=== PATIENT | male | born 1965 | race Caucasian/White ===

== ENCOUNTER 2018-12-05 09:15 | Emergency (ER) | payer BC, MEDICAID ==
[2018-12-05] MEDS ORDERED: Sodium Chloride 0.9% 10 ML Syringe FLUSH PRN (09:17)
[2018-12-05] MEDS ORDERED: Pantoprazole 40 MG Vial IVPUSH ONE (09:17)
[2018-12-05] MEDS ORDERED: Sodium Chloride 0.9% 1,000 ML IV SCH (09:30)
--- NOTE | 2018-12-05 09:39 | EDM.PDOC ---
ED HPI GENERAL MEDICAL PROBLEM - General Chief Complaint: Gastrointestinal Problem Stated Complaint: INTERNAL BLEEDING Time Seen by Provider: 12/05/18 09:17 Source of Information: Reports: Patient, EMS, RN Notes Reviewed History Limitations: Reports: Physical Impairment - History of Present Illness INITIAL COMMENTS - FREE TEXT/NARRATIVE: 53-year-old gentleman presents emergency department today via EMS services for 24 hours of bright red blood per rectum as well as emesis of bright red blood, does have a known history of alcohol abuse he is minimally communicative but does open his eyes spontaneously and will follow commands, became very diaphoretic and hypotensive while in the ambulance in route. - Related Data Allergies Allergy/AdvReac Type Severity Reaction Status Date / Time No Known Allergies Allergy Verified 07/28/13 20:07 Home Meds: Home Meds NK [No Known Home Meds] 07/28/13 [History] Past Medical History Psychiatric History: Reports: Addiction Social & Family History - Alcohol Use Alcohol Use History: Yes Days Per Week of Alcohol Use Comment: Daily alcohol use vodka ED ROS GENERAL - Review of Systems Review Of Systems: Unable To Obtain ED EXAM, GI/ABD - Physical Exam Exam: See Below Exam Limited By: Physical Impairment General Appearance: Alert, Other (GCS 14) Eyes: Right: EOMI (Injected sclera) Ears: Normal External Exam, Normal Canal, Hearing Grossly Normal, Normal TMs Nose: Normal Inspection, Normal Mucosa, No Blood Throat/Mouth: Normal Inspection, Normal Lips, Normal Teeth, Normal Gums, Normal Oropharynx, Normal Voice, No Airway Compromise Head: Atraumatic, Normocephalic Neck: Normal Inspection, Supple, Non-Tender, Full Range of Motion Respiratory/Chest: No Respiratory Distress, Lungs Clear, Normal Breath Sounds, No Accessory Muscle Use, Chest Non-Tender Cardiovascular: Tachycardia GI/Abdominal Exam: Soft, Tender (Generalized) Extremities: Pedal Edema Course - Vital Signs Last Recorded V/S: Last Vital Signs Temp 96.5 F 12/05/18 11:00 Pulse 115 H 12/05/18 11:00 Resp 21 H 12/05/18 11:00 BP 105/34 L 12/05/18 11:00 Pulse Ox 92 L 12/05/18 10:41 - Orders/Labs/Meds Orders: Active Orders 24 hr Category Date Time Status EKG Documentation Completion [RC] ASDIRECTED Care 12/05/18 09:48 Active Peripheral IV Care [RC] . DIRECTED Care 12/05/18 09:18 Active RT Aerosol Therapy [RC] ASDIRECTED Care 12/05/18 10:35 Active FRESH FROZEN PLASMA [BBK] Stat Lab 12/05/18 09:10 Results PATIENT RETYPE [BBK] Urgent Lab 12/05/18 09:10 Results RED BLOOD CELLS LP [BBK] Stat Lab 12/05/18 09:10 Results TYPE AND SCREEN [BBK] Urgent Lab 12/05/18 09:10 Results Heparin Sodium [Heparin Lock Flush 100 Units/ML] Med 12/05/18 11:27 Active 100 units FLUSH ASDIRECTED PRN Norepinephrine [Levophed] 4 mg Med 12/05/18 11:30 Active Dextrose 5% in Water 246 ml IV TITRATE Octreotide [SandoSTATIN] 600 mcg Med 12/05/18 10:00 Active Sodium Chloride 0.9% [Normal Saline] 247 ml IV TITRATE Sodium Chloride 0.9% [Normal Saline] 1,000 ml Med 12/05/18 09:30 Active IV ASDIRECTED Sodium Chloride 0.9% [Normal Saline] 100 ml Med 12/05/18 11:15 Active Pantoprazole [ProTONIX IV] 80 mg IV 10 mls/hr Sodium Chloride 0.9% [Saline Flush] Med 12/05/18 09:17 Active 10 ml FLUSH ASDIRECTED PRN Peripheral IV Insertion Adult [OM.PC] Urgent Oth 12/05/18 09:17 Ordered Transfuse Fresh Frozen Plasma [COMM] Stat Oth 12/05/18 11:32 Ordered Transfuse Fresh Frozen Plasma [COMM] Stat Oth 12/05/18 11:32 Ordered EKG 12 Lead [EK] Stat Ther 12/05/18 09:48 Ordered Medication Orders Heparin Sodium (Porcine) (Heparin Lock Flush 100 Units/Ml) 100 units FLUSH ASDIRECTED PRN PRN Reason: central line Sodium Chloride (Normal Saline) 1,000 mls @ 999 mls/hr IV ASDIRECTED AUDREY Last Admin: 12/05/18 09:39 Dose: 999 mls/hr Octreotide Acetate 600 mcg/ (Sodium Chloride) 250 mls @ 10.41 mls/hr IV TITRATE AUDREY Last Admin: 12/05/18 09:52 Dose: 10.41 mls/hr Pantoprazole Sodium 80 mg/ (Sodium Chloride) 100 mls @ 10 mls/hr IV .Q10H AUDREY Norepinephrine Bitartrate 4 mg (/ Dextrose/Water) 250 mls @ 7.5 mls/hr IV TITRATE AUDREY; Protocol Sodium Chloride (Saline Flush) 10 ml FLUSH ASDIRECTED PRN PRN Reason: Keep Vein Open Labs: Laboratory Tests 12/05/18 12/05/18 12/05/18 Range/Units 09:10 09:10 09:10 WBC 25.0 H (4.5-11.0) K/uL RBC 1.58 L (4.30-5.90) M/uL Hgb 5.8 L* (12.0-15.0) g/dL Hct 18.9 L (40.0-54.0) % MCV 120 H (80-98) fL MCH 37 H (27-31) pg MCHC 31 L (32-36) % Plt Count 128 L (150-400) K/uL Neut % (Auto) 85 H (36-66) % Lymph % (Auto) 7 L (24-44) % Richardson % (Auto) 8 H (2-6) % Eos % (Auto) 0 L (2-4) % Baso % (Auto) 0 (0-1) % PT 19.4 H (9.5-12.0) sec INR 1.82 H (0.80-1.20) APTT 41.3 H (27.0-36.0) sec Sample Site POC ABG pH (7.35-7.45) POC ABG pCO2 (35-45) mmHG POC ABG pO2 (80-105) mmHg POC ABG HCO3 (22.0-26.0) mmol/L POC ABG Total CO2 (23-27) mmol/L POC ABG O2 Sat (95-98) % POC ABG Base Excess (-2-3) mmol/L Roberto Test O2 Delivery Device POC O2 Flow Rate Sodium 147 (140-148) mmol/L Potassium 4.8 (3.6-5.2) mmol/L Chloride 111 H (100-108) mmol/L Carbon Dioxide 13 L (21-32) mmol/L Anion Gap 27.8 H (5.0-14.0) mmol/L BUN 32 H (7-18) mg/dL Creatinine 1.9 H (0.8-1.3) mg/dL Est Cr Clr Drug Dosing 1.75 mL/min Estimated GFR (MDRD) 37 L (>60) Glucose 142 H (74-106) mg/dL Lactic Acid (0.4-2.0) mmol/L Calcium 8.1 L (8.5-10.1) mg/dL Total Bilirubin 5.6 H (0.2-1.0) mg/dL AST 134 H (15-37) U/L ALT 48 (12-78) U/L Alkaline Phosphatase 90 (46-116) U/L Troponin I (0.000-0.056) ng/mL NT-Pro-B Natriuret Pep (5-125) pg/mL Total Protein 4.2 L (6.4-8.2) g/dL Albumin 1.8 L (3.4-5.0) g/dL Globulin 2.4 (2.3-3.5) g/dL Albumin/Globulin Ratio 0.8 L (1.2-2.2) Ethyl Alcohol mg/dL Blood Type Gel Antibody Screen Crossmatch 12/05/18 12/05/18 12/05/18 Range/Units 09:10 09:10 09:48 WBC (4.5-11.0) K/uL RBC (4.30-5.90) M/uL Hgb (12.0-15.0) g/dL Hct (40.0-54.0) % MCV (80-98) fL MCH (27-31) pg MCHC (32-36) % Plt Count (150-400) K/uL Neut % (Auto) (36-66) % Lymph % (Auto) (24-44) % Richardson % (Auto) (2-6) % Eos % (Auto) (2-4) % Baso % (Auto) (0-1) % PT (9.5-12.0) sec INR (0.80-1.20) APTT (27.0-36.0) sec Sample Site POC ABG pH (7.35-7.45) POC ABG pCO2 (35-45) mmHG POC ABG pO2 (80-105) mmHg POC ABG HCO3 (22.0-26.0) mmol/L POC ABG Total CO2 (23-27) mmol/L POC ABG O2 Sat (95-98) % POC ABG Base Excess (-2-3) mmol/L Roberto Test O2 Delivery Device POC O2 Flow Rate Sodium (140-148) mmol/L Potassium (3.6-5.2) mmol/L Chloride (100-108) mmol/L Carbon Dioxide (21-32) mmol/L Anion Gap (5.0-14.0) mmol/L BUN (7-18) mg/dL Creatinine (0.8-1.3) mg/dL Est Cr Clr Drug Dosing mL/min Estimated GFR (MDRD) (>60) Glucose (74-106) mg/dL Lactic Acid 18.8 H (0.4-2.0) mmol/L Calcium (8.5-10.1) mg/dL Total Bilirubin (0.2-1.0) mg/dL AST (15-37) U/L ALT (12-78) U/L Alkaline Phosphatase (46-116) U/L Troponin I 0.050 (0.000-0.056) ng/mL NT-Pro-B Natriuret Pep (5-125) pg/mL Total Protein (6.4-8.2) g/dL Albumin (3.4-5.0) g/dL Globulin (2.3-3.5) g/dL Albumin/Globulin Ratio (1.2-2.2) Ethyl Alcohol mg/dL Blood Type O POSITIVE Gel Antibody Screen Negative Crossmatch See Detail 12/05/18 12/05/18 12/05/18 Range/Units 10:21 10:21 10:54 WBC (4.5-11.0) K/uL RBC (4.30-5.90) M/uL Hgb (12.0-15.0) g/dL Hct (40.0-54.0) % MCV (80-98) fL MCH (27-31) pg MCHC (32-36) % Plt Count (150-400) K/uL Neut % (Auto) (36-66) % Lymph % (Auto) (24-44) % Richardson % (Auto) (2-6) % Eos % (Auto) (2-4) % Baso % (Auto) (0-1) % PT (9.5-12.0) sec INR (0.80-1.20) APTT (27.0-36.0) sec Sample Site Lt radial POC ABG pH 7.35 (7.35-7.45) POC ABG pCO2 12.1 L* (35-45) mmHG POC ABG pO2 146 H (80-105) mmHg POC ABG HCO3 6.6 L (22.0-26.0) mmol/L POC ABG Total CO2 7 L (23-27) mmol/L POC ABG O2 Sat 99 H (95-98) % POC ABG Base Excess -19 L (-2-3) mmol/L Roberto Test Performed O2 Delivery Device Nasal cannula POC O2 Flow Rate 2 Sodium (140-148) mmol/L Potassium (3.6-5.2) mmol/L Chloride (100-108) mmol/L Carbon Dioxide (21-32) mmol/L Anion Gap (5.0-14.0) mmol/L BUN (7-18) mg/dL Creatinine (0.8-1.3) mg/dL Est Cr Clr Drug Dosing mL/min Estimated GFR (MDRD) (>60) Glucose (74-106) mg/dL Lactic Acid (0.4-2.0) mmol/L Calcium (8.5-10.1) mg/dL Total Bilirubin (0.2-1.0) mg/dL AST (15-37) U/L ALT (12-78) U/L Alkaline Phosphatase (46-116) U/L Troponin I (0.000-0.056) ng/mL NT-Pro-B Natriuret Pep 1575 H (5-125) pg/mL Total Protein (6.4-8.2) g/dL Albumin (3.4-5.0) g/dL Globulin (2.3-3.5) g/dL Albumin/Globulin Ratio (1.2-2.2) Ethyl Alcohol < 3 mg/dL Blood Type Gel Antibody Screen Crossmatch Meds: Medications Generic Name Dose Route Start Last Admin Trade Name Freq PRN Reason Stop Dose Admin Heparin Sodium (Porcine) 100 units 12/05/18 11:27 Heparin Lock Flush 100 Units/Ml FLUSH ASDIRECTED PRN central line Sodium Chloride 1,000 mls @ 999 mls/hr 12/05/18 09:30 12/05/18 09:39 Normal Saline IV 999 mls/hr ASDIRECTED AUDREY Administration Octreotide Acetate 600 mcg/ 250 mls @ 10.41 mls/hr 12/05/18 10:00 12/05/18 09 :52 Sodium Chloride IV 10.41 mls/hr TITRATE AUDREY Administration 25 MCG/HR Pantoprazole Sodium 80 mg/ 100 mls @ 10 mls/hr 12/05/18 11:15 Sodium Chloride IV .Q10H AUDREY Norepinephrine Bitartrate 4 mg 250 mls @ 7.5 mls/hr 12/05/18 11:30 / Dextrose/Water IV TITRATE AUDREY Protocol 2 MCG/MIN Sodium Chloride 10 ml 12/05/18 09:17 Saline Flush FLUSH ASDIRECTED PRN Keep Vein Open Discontinued Medications Generic Name Dose Route Start Last Admin Trade Name Freq PRN Reason Stop Dose Admin Albuterol/Ipratropium 3 ml 12/05/18 10:35 12/05/18 10:43 Duoneb 3.0-0.5 Mg/3 Ml NEB 12/05/18 10:36 3 ml ONETIME ONE Administration Heparin Sodium (Porcine) Confirm 12/05/18 11:54 Heparin Lock Flush 100 Units/Ml Administered 12/05/18 11:55 Dose 1,000 units .ROUTE .STK-MED ONE Ceftriaxone Sodium 2 gm/ 50 mls @ 100 mls/hr 12/05/18 11:13 Sodium Chloride IV 12/05/18 11:42 ONETIME ONE Phytonadione 10 mg/ Sodium 51 mls @ 100 mls/hr 12/05/18 11:13 Chloride IV 12/05/18 11:43 NOW ONE Lidocaine HCl 20 ml 12/05/18 11:26 Xylocaine 1% INJECT 12/05/18 11:27 ONETIME ONE Lidocaine HCl 0 ml 12/05/18 11:45 Xylocaine 1% INJECT 12/05/18 11:46 ONETIME ONE Octreotide Acetate 50 mcg 12/05/18 10:00 Sandostatin IVPUSH 12/05/18 10:01 ONETIME ONE Pantoprazole Sodium 40 mg 12/05/18 09:17 12/05/18 09:39 Protonix Iv IVPUSH 12/05/18 09:18 40 mg ONETIME ONE Administration - Re-Assessments/Exams Free Text/Narrative Re-Assessment/Exam: 12/05/18 11:17 Called discussed case with Dr. Bailey critical care physician at [facility] kindly accepted the patient in transport at 1110 however asked for the following orders to be done central line placement 2 units of packed red blood cells 10 mg IV vitamin K started on a Protonix drip 2 g of ceftriaxone, I called discussed the case with Dr. Watkins off Gen. surgery at 1120 he kindly agreed to come and help with placement of a central line. Also recommended Levaquin. Departure - Departure Time of Disposition: 12:05 Disposition: DC/Tfer to Acute Hospital 02 Condition: Poor, Critical Clinical Impression: Hemorrhagic shock GI bleed Qualifiers: GI bleed type/associated pathology: unspecified gastrointestinal hemorrhage type Qualified Code(s): K92.2 - Gastrointestinal hemorrhage, unspecified - Discharge Information Referrals: PCP,None [Primary Care Provider] - Forms: ED Department Discharge - My Orders Last 24 Hours: My Active Orders 12/05/18 09:10 FRESH FROZEN PLASMA [BBK] Stat PATIENT RETYPE [BBK] Urgent RED BLOOD CELLS LP [BBK] Stat TYPE AND SCREEN [BBK] Urgent 12/05/18 09:17 Sodium Chloride 0.9% [Saline Flush] 10 ml FLUSH ASDIRECTED PRN Peripheral IV Insertion Adult [OM.PC] Urgent 12/05/18 09:18 Peripheral IV Care [RC] . DIRECTED 12/05/18 09:30 Sodium Chloride 0.9% [Normal Saline] 1,000 ml IV ASDIRECTED 12/05/18 09:48 EKG Documentation Completion [RC] ASDIRECTED EKG 12 Lead [EK] Stat 12/05/18 10:00 Octreotide [SandoSTATIN] 600 mcg Sodium Chloride 0.9% [Normal Saline] 247 ml IV TITRATE 12/05/18 10:35 RT Aerosol Therapy [RC] ASDIRECTED 12/05/18 11:15 Sodium Chloride 0.9% [Normal Saline] 100 ml Pantoprazole [ProTONIX IV] 80 mg IV 10 mls/hr 12/05/18 11:30 Norepinephrine [Levophed] 4 mg Dextrose 5% in Water 246 ml IV TITRATE 12/05/18 11:32 Transfuse Fresh Frozen Plasma [COMM] Stat Transfuse Fresh Frozen Plasma [COMM] Stat - Assessment/Plan Last 24 Hours: My Active Orders 12/05/18 09:10 FRESH FROZEN PLASMA [BBK] Stat PATIENT RETYPE [BBK] Urgent RED BLOOD CELLS LP [BBK] Stat TYPE AND SCREEN [BBK] Urgent 12/05/18 09:17 Sodium Chloride 0.9% [Saline Flush] 10 ml FLUSH ASDIRECTED PRN Peripheral IV Insertion Adult [OM.PC] Urgent 12/05/18 09:18 Peripheral IV Care [RC] . DIRECTED 12/05/18 09:30 Sodium Chloride 0.9% [Normal Saline] 1,000 ml IV ASDIRECTED 12/05/18 09:48 EKG Documentation Completion [RC] ASDIRECTED EKG 12 Lead [EK] Stat 12/05/18 10:00 Octreotide [SandoSTATIN] 600 mcg Sodium Chloride 0.9% [Normal Saline] 247 ml IV TITRATE 12/05/18 10:35 RT Aerosol Therapy [RC] ASDIRECTED 12/05/18 11:15 Sodium Chloride 0.9% [Normal Saline] 100 ml Pantoprazole [ProTONIX IV] 80 mg IV 10 mls/hr 12/05/18 11:30 Norepinephrine [Levophed] 4 mg Dextrose 5% in Water 246 ml IV TITRATE 12/05/18 11:32 Transfuse Fresh Frozen Plasma [COMM] Stat Transfuse Fresh Frozen Plasma [COMM] Stat Plan: Assessment Acuity = acute Site and laterality = GI bleed with hemorrhagic shock, complicated in a patient with history of heavy alcohol abuse daily vodka Etiology = probably related to alcohol Manifestations = hypertension, altered mental status now improved Location of injury = Home Lab values = WBC elevated 25.0 consistent leukocytosis, hemoglobin low at 5.8 consistent with Macker chromic anemia platelets low at 128 consistent with thrombocytopenia INR 1.8 to ABG reveals pH 7.35 PCO2 12.1 bicarbonate was 6.6 creatinine elevated 1.9 consistent with acute renal failure stage G IIIB lactic acid elevated 18.8 consistent lactic acidosis really Mark elevated 5.6 consistent hyperbilirubinemia AST elevated 134 consistent with elevated liver enzymes troponin 0.05 within normal range BNP elevated 1575 consistent with fluid overload type pattern albumin low at 1.8 consistent hypo-albuminemia, chest x-ray reveals no acute process I did review films myself I cannot appreciate any acute process, the official read from radiology is pending Plan Called discussed the case with Dr. Bailey [facility] accepted the patient in transport a central line has been placed he has received one unit of packed red blood cells received a second unit of packed red blood cells in route 10 mg of vitamin K a bolus of 40 mg Protonix and is on a Protonix drip 2 mg ceftriaxone Anai fed has been initiated to maintain blood pressure he has received 2 units of lactated Ringer's one unit of packed red blood cells while in the emergency department Critical care time 65 minutes This note was dictated using [employer] voice recognition software please call with any questions on syntax or grammar.
[2018-12-05] MEDS: Octreotide 100 MCG/ML SDV IVPUSH ONE ×2 (09:52→13:25)
[2018-12-05] MEDS ORDERED: OCTREOTIDE IV SCH (10:00)
[2018-12-05] MEDS ORDERED: Octreotide 100 MCG/ML SDV IVPUSH ONE (10:00)
[2018-12-05] MEDS ORDERED: SODIUM CHLORIDE 0.9% IV SCH (10:00)
[2018-12-05] MEDS ORDERED: Albuterol/Ipratropium 3.0-0.5 MG/3 ML Neb Soln NEB ONE (10:35)
--- NOTE | 2018-12-05 11:10 | CRLCR ---
Shortness of breath Portable chest No comparison studies are available Findings: Low lung volumes. Basilar and right upper lobe areas of atelectasis or infiltrates. No effusion. No pneumothorax. Dictated by Samantha Flores MD @ Dec 05 2018 11:08AM Signed by Dr. Samantha Flores @ Dec 05 2018 11:10AM
[2018-12-05] MEDS ORDERED: Phytonadione 10 MG in Sodium Chloride 0.9% 50 ML IV ONE (11:13)
[2018-12-05] MEDS ORDERED: cefTRIAXone 2 GM in Sodium Chloride 0.9% 50 ML IV ONE (11:13)
[2018-12-05] MEDS: Sodium Chloride 0.9% 100 ML with Pantoprazole 80 MG IV SCH ×4 (11:15→13:59)
[2018-12-05] MEDS ORDERED: Lidocaine 1% 20 ML MDV INJECT ONE ×2 (11:26→11:45)
[2018-12-05] MEDS ORDERED: Norepinephrine 4 MG in Dextrose 5% in Water 246 ML IV SCH ×4 (11:30)
[2018-12-05] MEDS ORDERED: Sodium Chloride 0.9% 100 ML with Pantoprazole 80 MG IV SCH ×2 (11:30)
[2018-12-05] MEDS ORDERED: Ondansetron 4 MG/2 ML SDV IVPUSH ONE (12:21)
[2018-12-05] MEDS ORDERED: Ondansetron 4 MG/2 ML SDV ONE (12:22)
--- NOTE | 2018-12-05 12:50 | CRLCR ---
Indication: Central line placement. Technique: A single AP portable view of the chest was obtained. Comparison: Study from earlier the same day. The current study is dated 1207 hours. Findings: A left subclavian central venous catheter is identified with the tip at the brachiocephalic vein/superior vena cava. Significant increase in the right upper lobe infiltrate is identified. The heart is normal in size. No pleural effusion or pneumothorax is identified. Impression: Left subclavian central venous catheter with the tip at the left brachiocephalic vein/SVC junction. Dictated by Maya Meza MD @ Dec 05 2018 12:48PM Signed by Dr. Maya Meza @ Dec 05 2018 12:49PM
--- NOTE | 2018-12-06 08:19 | OR ---
DATE OF PROCEDURE: 12/05/2018 PREOPERATIVE DIAGNOSIS: Hemorrhagic shock. POSTOPERATIVE DIAGNOSIS: Hemorrhagic shock. PROCEDURE: Left subclavian central line placement. SURGEON: Heriberto Rose MD ANESTHESIA: Lidocaine 1% plain local. INDICATION: This 53-year-old white male came into the emergency room in hemorrhagic shock. He is suffering a gastrointestinal hemorrhage manifested by 24 hours of black tarry stools. He has a problem with alcoholism. His bilirubin is in excess of 5. His INR is 2. IV access is obtained with 2 peripheral lines. Additionally, he has an intraosseous in his right tibia. Before they will accept him in [place], they require a central line be placed. I counseled the patient for the central line, including risks and alternatives, and he gave his informed consent to proceed. He has been receiving blood and fluids and is lucid at the present time. DESCRIPTION OF PROCEDURE: The patient's upper chest, shoulders, and neck were prepped and draped in the usual sterile fashion. He was placed in deep Trendelenburg. Lidocaine 1% plain was infiltrated about the left infraclavicular area. The left subclavian vein was cannulated with a needle and a wire was passed through the needle into the vein. The needle was removed. A dilator was placed over the wire, and the dilator was removed. A small skin incision was made at the wire exit site. A 3-port central line was then passed over the wire into the vein and the wire was removed. All ports were aspirated and then flushed with heparinized saline. The catheter was anchored with 3-0 silk suture. A sterile dressing was applied. Chest x-ray is pending at this time. He tolerated the procedure well. Heriberto Rose MD /[id number] MTDD
== END 2018-12-05 12:35 ==
LOC: JP.ED 09:15
DX: K92.2 Gastrointestinal hemorrhage, unspecified (principal); R57.8 Other shock; F10.10 Alcohol abuse, uncomplicated; I10 Essential (primary) hypertension; Y90.0 Blood alcohol level of less than 20 mg/100 ml
CPT/HCPCS: 36415; 36430; 36556; 36600; 36680; 71045; 80053; 82803; 83605; 83880; 84484; 85025; 85610; 85730; 86850; 86900; 86901; 86920; 86922; 93005; 94640; 96365; 96366; 96368; 96375; 96376; 99291; C9113; G0480; J0696; J1642; J2001; J2354; J2405; J3430; J7030; J7050; J7060; P9016; 99284-25; J7620-GY

== ENCOUNTER 2022-02-24 15:31 | Emergency (ER) | payer MEDICAID ==
[2022-02-24] MEDS ORDERED: Sodium Chloride 0.9% 10 ML Syringe FLUSH PRN (15:42)
[2022-02-24] MEDS ORDERED: Pantoprazole 40 MG Vial IVPUSH ONE (15:42)
[2022-02-24 16:18] LABS: ESTIMATED GFR 87 mL/min (>60)
[2022-02-24] MEDS ORDERED: Simethicone 125 MG Tab.Chew PO ONE (16:21)
[2022-02-24] MEDS ORDERED: Calcium Carbonate 500 MG Tab.Chew PO ONE (16:40)
== END 2022-02-24 17:13 | disposition home or self-care (01) ==
LOC: JP.ED 15:31
DX: K43.9 Ventral hernia without obstruction or gangrene (principal); D69.6 Thrombocytopenia, unspecified; E66.01 Morbid (severe) obesity due to excess calories; Z79.899 Other long term (current) drug therapy
CPT/HCPCS: 36415; 80053; 80307; 83690; 85025; 96374; 99284; A9270; C9113; J3490